=== PATIENT | female | born 2000 | race Hispanic/Latino ===

== ENCOUNTER 2024-07-25 08:39 | Emergency (ER) | payer BC | END 2024-07-25 10:15 | disposition home or self-care (01) | LOC: CSHERS 08:39 | DX: O99.891 Other specified diseases and conditions complicating pregnancy (principal); R10.9 Unspecified abdominal pain; Z3A.00 Weeks of gestation of pregnancy not specified | CPT/HCPCS: 36415; 84702; 99282 ==